=== PATIENT | female | born 2000 | race Caucasian/White ===

== ENCOUNTER → 2023-09-17 13:03 | Outpatient (CLI) | payer SELFPAY ==
--- NOTE | 2023-09-17 13:10 | DI.US.S_ITS ---
PROCEDURE: US SOFT TISSUE HEAD AND NECK INDICATIONS: LEFT SUPERIOR/ANTERIOR NECK LUMP TECHNIQUE: Real-time scanning was performed of the neck region of interest, with image documentation. COMPARISON: None. FINDINGS: Bilateral neck region demonstrates prominent lymph nodes measuring up to 0.9 cm in short axis on the left and 0.9 cm in short axis on the right. No solid mass. No fatty hilum is visualized. IMPRESSION: 1. No sonographic evidence of a mass. 2. Bilateral neck region demonstrates prominent lymph nodes measuring up to 0.9 cm in short axis. Given these are symmetric in size, in the setting of a recent illness, these are favored to represent reactive lymph nodes. Recommend clinical correlation and short interval ultrasound, if clinically warranted. Dictated by: Marcell Corbin M.D. on 09/18/2023 at 9:24 Approved by: Marcell Corbin M.D. on 09/18/2023 at 9:28
== END ==
PROVIDERS: Referring Provider Family Medicine; Visit Provider Family Medicine
DX: R59.0 Localized enlarged lymph nodes (principal)
CPT/HCPCS: 76536